=== PATIENT | female | born 1980 | race Caucasian/White ===

== ENCOUNTER 2018-11-19 11:07 | Emergency (ER) | payer SELFPAY ==
[~2018-11-19] VITALS: Ht 162.6 cm; Wt 60.0 kg
[2018-11-19 16:21] LABS: BASOPHILS % 0.6 % (0.0-2.0); EOSINOPHILS % 0.5 % (0.0-5.0); HEMATOCRIT. 36.2 % (36.0-48.0); HEMOGLOBIN. 11.6 g/dL (12.0-16.0); LYMPHOCYTES % 22.5 % (20.0-50.0); MEAN CORPUSCULAR HEMOGLOBIN 23.9 pg (28.0-32.0); MEAN CORPUSCULAR VOLUME 74.2 fL (81.0-99.0); MEAN PLATELET VOLUME 9.4 fl (7.4-10.4); MONOCYTES % 5.6 % (2.0-8.0); NEUTROPHILS % 70.8 % (40.0-76.0); PLATELET 294 x1000/uL (130-400); RED BLOOD CELL COUNT 4.87 mill/uL (4.2-5.4); RED CELL DISTRIBUTION WIDTH 18.4 % (11.6-14.6)
[2018-11-19 16:26] LABS: CHLORIDE 110 mEq/L (98-107)
[2018-11-19 16:31] LABS: ETHANOL BLOOD < 10 mg/dL
[2018-11-19 16:35] LABS: HCG SCREEN NEGATIVE
[2018-11-19] MEDS ORDERED: IBUPROFEN 400MG TABLET PO ONE (19:15)
[2018-11-19] MEDS ORDERED: LORAZEPAM 1MG TABLET PO ONE (22:15)
[2018-11-20] MEDS ORDERED: OLANZAPINE 10 MG/VIAL IM ONE (08:00)
[2018-11-20] MEDS ORDERED: LORAZEPAM 1MG TABLET PO ONE (08:00)
[2018-11-20] MEDS ORDERED: IBUPROFEN 600MG TABLET PO ONE (08:00)
[2018-11-20 09:00] VITALS: BP 111/72
== END 2018-11-20 09:57 | disposition home or self-care (01) ==
LOC: EDBD → ER 11:07
DX: F15.10 Other stimulant abuse, uncomplicated (principal); F41.9 Anxiety disorder, unspecified; F12.10 Cannabis abuse, uncomplicated; F17.200 Nicotine dependence, unspecified, uncomplicated; R41.82 Altered mental status, unspecified; Z59.0 Homelessness
CPT/HCPCS: 36415; 80320; 84703; 99284; J3490; G0480

== ENCOUNTER 2018-11-20 22:01 | Emergency (ER) | payer OTHER ==
[~2018-11-20] VITALS: Ht 165.1 cm; Wt 69.0 kg
[2018-11-21 03:15] VITALS: BP 120/65
[2018-11-21] MEDS: ACETAMINOPHEN 325MG TABLET PO ONE (06:30)
== END 2018-11-21 09:30 | disposition left against medical advice (07) ==
LOC: EDBD 22:01 → ER 22:01
DX: M79.672 Pain in left foot (principal); M79.671 Pain in right foot; M54.2 Cervicalgia; M54.5 Low back pain; F17.200 Nicotine dependence, unspecified, uncomplicated; F12.10 Cannabis abuse, uncomplicated; F15.10 Other stimulant abuse, uncomplicated
CPT/HCPCS: 99282

== ENCOUNTER 2021-02-13 04:26 | Emergency (ER) | payer OTHER ==
[~2021-02-13] VITALS: Ht 165.1 cm; Wt 75.0 kg
[2021-02-13] MEDS ORDERED: IBUPROFEN 600MG TABLET PO STA (06:00)
[2021-02-13] MEDS ORDERED: CYCLOBENZAPRINE 10MG TABLET PO ONE (06:00)
[2021-02-13 06:58] LABS: CLARITY URINE CLEAR (CLEAR); COLOR URINE YELLOW (YELLOW); KETONES URINE NEGATIVE (NEGATIVE); LEUKOCYTE ESTERASE URINE 3+ (NEGATIVE); NITRITE URINE NEGATIVE (NEGATIVE); OCCULT BLOOD URINE NEGATIVE (NEGATIVE); PROTEIN URINE TRACE (NEGATIVE); SPECIFIC GRAVITY URINE 1.023 (1.005-1.030)
[2021-02-13 07:13] LABS: BASOPHILS % 0.2 % (0.0-2.0); CHLORIDE 106 mEq/L (98-107); EOSINOPHILS % 0.1 % (0.0-5.0); HEMOGLOBIN. 9.4 g/dL (12.0-16.0); LYMPHOCYTES % 32.3 % (20.0-50.0); MEAN CORPUSCULAR HEMOGLOBIN 19.6 pg (28.0-32.0); MEAN PLATELET VOLUME 7.6 fl (7.4-10.4); MONOCYTES % 6.4 % (2.0-8.0); PLATELET 403 x1000/uL (130-400); RED BLOOD CELL COUNT 4.76 mill/uL (4.2-5.4); RED CELL DISTRIBUTION WIDTH 17.5 % (11.6-14.6)
[2021-02-13 07:19] LABS: ETHANOL BLOOD < 10 mg/dL
[2021-02-13 08:00] VITALS: BP 128/76
[2021-02-13] MEDS ORDERED: CEPH500T MT (09:06)
[2021-02-13] MEDS ORDERED: CYCL10TA7 MT (09:06)
[2021-02-13] MEDS ORDERED: IBUP-2029 MT (09:06)
[2021-02-13 12:09] LABS: PLATELET ESTIMATE SLIGHTLY INCREASED
== END 2021-02-13 11:01 | disposition home or self-care (01) ==
LOC: ER 04:26
DX: M54.12 Radiculopathy, cervical region (principal); N30.00 Acute cystitis without hematuria; F15.10 Other stimulant abuse, uncomplicated; F12.10 Cannabis abuse, uncomplicated; I25.2 Old myocardial infarction; I10 Essential (primary) hypertension; J45.909 Unspecified asthma, uncomplicated; Z86.73 Personal history of transient ischemic attack (TIA), and cerebral infarction without residual deficits; Z98.890 Other specified postprocedural states
CPT/HCPCS: 36415; 71045; 72040; 80053; 80320; 81003; 81025; 85025; 99284; G0480

== ENCOUNTER 2021-09-19 03:47 | Emergency (ER) | payer OTHER ==
[~2021-09-19] VITALS: Ht 165.1 cm; Wt 78.2 kg
[~2021-09-19 03:47] MED LIST: CEPH500T MT; CYCL10TA21 MT; IBUP-2029 MT
[2021-09-19] MEDS ORDERED: KETOROLAC 60MG/2ML VIAL IM ONE (06:00)
[2021-09-19] MEDS ORDERED: MORPHINE SULFATE 10 MG/ML CPJ IM ONE (06:00)
[2021-09-19 06:35] LABS: CLARITY URINE CLEAR (CLEAR); COLOR URINE DARK YELLOW (YELLOW); KETONES URINE TRACE (NEGATIVE); LEUKOCYTE ESTERASE URINE 1+ (NEGATIVE); NITRITE URINE NEGATIVE (NEGATIVE); OCCULT BLOOD URINE 3+ (NEGATIVE); PH URINE 5.5 (4.5-8.0); PROTEIN URINE 3+ (NEGATIVE); SPECIFIC GRAVITY URINE 1.032 (1.005-1.030)
[2021-09-19] MEDS ORDERED: TOPUD PO (06:55)
[2021-09-19] MEDS ORDERED: IBUP-2028 MT (06:55)
[2021-09-19 07:33] VITALS: BP 127/86
== END 2021-09-19 07:36 | disposition home or self-care (01) ==
LOC: ER 03:47
DX: N80.9 Endometriosis, unspecified (principal); R10.2 Pelvic and perineal pain; F12.10 Cannabis abuse, uncomplicated; F15.10 Other stimulant abuse, uncomplicated; Z98.890 Other specified postprocedural states
CPT/HCPCS: 81003; 81025; 96372; 99284; J1885; J2270